=== PATIENT | female | born 1940 | race Caucasian/White ===

== ENCOUNTER 2021-10-18 22:59 | Emergency (ER) | payer BC, MEDICARE ==
[2021-10-18] MEDS ORDERED: Sodium Chloride 0.9% 10 ML Syringe FLUSH PRN (23:20)
[2021-10-18] MEDS ORDERED: Sodium Chloride 0.9% 1,000 ML IV ONE (23:20)
[2021-10-18] MEDS ORDERED: Magnesium Citrate Solution 296 ML Bottle PO ONE (23:21)
[2021-10-18 23:53] LABS: ANION GAP 14.4 mmol/L (5-15)
[2021-10-19] MEDS ORDERED: Ondansetron 4 MG/2 ML SDV IVPUSH ONE (00:27)
[2021-10-19] MEDS ORDERED: Morphine 4 MG/ML Syringe IVPUSH ONE (00:27)
[2021-10-19] MEDS ORDERED: Iopamidol 612 MG/ML 100 ML Bottle IVPUSH ONE (00:40)
[2021-10-19] MEDS ORDERED: Piperacillin/Tazobactam 3.375 GM in Sodium Chloride 0.9% 100 ML IV SCH (02:15)
[2021-10-19] MEDS ORDERED: Sodium Chloride 0.9% 1,000 ML IV SCH (02:15)
== END 2021-10-19 03:25 | disposition short-term general hospital (02) ==
LOC: VM.ED 22:59
DX: K35.80 Unspecified acute appendicitis (principal); Z20.822 Contact with and (suspected) exposure to COVID-19
CPT/HCPCS: 36415; 74177; 80048; 81001; 85025; 87086; 96361; 96365; 96375; 99284; 99285-25; J2270; J2405; J2543; J7030; Q9967; U0002